=== PATIENT | female | born 1985 | race Caucasian/White ===

== ENCOUNTER 2017-11-29 08:54 | Outpatient (CLI) | END 2017-11-29 13:21 | disposition home or self-care (01) ==

== ENCOUNTER 2017-12-03 03:44 | Outpatient (CLI) | END 2017-12-03 07:16 | disposition home or self-care (01) ==

== ENCOUNTER 2017-12-06 09:30 | Inpatient (IN) | END 2017-12-08 22:35 | disposition home or self-care (01) | DRG 780 ==

== ENCOUNTER 2017-12-09 02:52 | Inpatient (IN) | END 2017-12-11 16:45 | disposition home or self-care (01) | DRG 781 ==